=== PATIENT | female | born 1985 | race African-American/Black ===

== ENCOUNTER 2020-11-22 11:49 | Outpatient (CLI) | payer OTHER, SELFPAY ==
[2020-11-22 12:37] LABS: Basophils Percent Auto 0.8 % (0.2-1.2); Eosinophils Absolute Auto 0.2 K/mm3 (0-0.3); Eosinophils Percent Auto 3.6 % (0-4.4); Hematocrit 35.8 % (37.0-47.0); Hemoglobin 11.1 g/dL (12.0-15.0); Immature Granulocyte Absolute 0.01 K/mm3 (0.00-0.031); Immature Granulocyte Percent A 0.2 % (0-0.5); Mean Corpuscular Hemoglobin 25.2 pg (26-34); Mean Corpuscular Volume 81.2 fl (80-100); Mean Platelet Volume 9.7 fl (7.4-10.4); Monocytes Absolute Auto 0.3 K/mm3 (0.1-0.6); Neutrophils Absolute Auto 2.2 K/mm3 (1.3-6.7); Neutrophils Percent Auto 42.4 % (45.5-73.1); Platelet Count Result 297 k/mm3 (150-375); Red Blood Count 4.41 M/mm3 (4.2-5.4); Red Cell Distribution Width 15.9 % (11.5-14.5); White Blood Count 5.2 K/mm3 (4.5-10.0)
[2020-11-22 12:48] LABS: Alanine Aminotransferase 16 U/L (4-35); Albumin Level 3.9 g/dL (3.5-5.1); Alkaline Phosphatase 64 U/L (38-126); Anion Gap 4 mmol/L (8-16); Aspartate Amino Transferase 20 U/L (14-36); Bilirubin,Total 0.3 mg/dL (0.2-1.3); Blood Urea Nitrogen 15 mg/dL (7-17); Calcium 8.8 mg/dL (8.4-10.2); Carbon Dioxide 28 mmol/L (22-30); Chloride 106 mmol/L (98-107); Cholesterol 177 mg/dL (0-200); Estimated Glomerular Filt Rate > 60; Glucose 87 mg/dL (65-105); HDL Direct 32 mg/dL; Magnesium 1.7 mg/dL (1.6-2.3); Sodium 138 mmol/L (137-145); Triglycerides 77 mg/dL (<150)
[2020-11-22 12:59] LABS: LDL Cholesterol Direct 113 mg/dL
== END 2020-11-22 11:50 | disposition home or self-care (01) ==
PROVIDERS: PCP Physician Assistant; Visit Provider Internal Medicine Cardiovascular Disease
DX: I50.9 Heart failure, unspecified (principal)
CPT/HCPCS: 36415; 80053; 80061; 83735; 84443; 85025

== ENCOUNTER 2021-12-01 13:09 | Outpatient (CLI) | payer OTHER, SELFPAY ==
--- NOTE | 2021-12-01 13:20 | ECHO_ITS ---
Patient Info Name: Sandra Maurice Age: 36 years : 1985 Gender: Female Ht: 64 in Wt: 362 lbs BSA: 2.84 m2 HR: 82 bpm BP: 160 / 109 mmHg Technical Quality: Poor Exam Date: 12/01/2021 1:50 PM Exam Location: [facility] Patient Status: Outpatient Admit Date: 12/01/2021 Staff Ordering Physician: Phillip Rosas DO Scallop Binder: Alexandria Quiñones RDCS Attending Provider: Phillip Rosas DO Referring Physician: Ralph GLOVER; Exam Type: CA echo doppler color flow Study Info Indications R06.00 - Dyspnea, unspecified Complete two-dimensional, color flow and Doppler transthoracic echocardiogram is performed. Reason for Poor Study: patient body habitus Summary 1. Complete two-dimensional, color flow and Doppler transthoracic echocardiogram is performed. 2. Technically suboptimal study due to poor sonographic images. Patient refused definity contrast. 3. Left ventricular chamber dimension is normal. 4. Left ventricular systolic function is normal, estimated at 60-65%. 5. The left ventricular diastolic function is normal. 6. E/e' 8 is minimally elevated. 7. Global longitudinal strain is abnormal at -13.9%. 8. No pulmonary hypertension, estimated pulmonary arterial systolic pressure is 33 mmHg. Left Ventricle Technically suboptimal study due to poor sonographic images. Patient refused definity contrast. E/e' 8 is minimally elevated. Global longitudinal strain is abnormal at -13.9%. Left ventricular chamber dimension is normal. Left ventricular systolic function is normal, estimated at 60-65%. The left ventricular diastolic function is normal. Right Ventricle Right ventricular chamber dimension is normal. Right ventricular systolic function is normal. Left Atria Left atrial chamber dimension is normal. Right Atria Right atrial chamber dimension is normal. Aortic Valve The aortic valve is probable trileaflet. There is no aortic valve stenosis. There is no aortic valve regurgitation. Pulmonic Valve There is no pulmonic regurgitation. Mitral Valve There is no mitral valve stenosis. There is no mitral valve regurgitation. Tricuspid Valve There is no tricuspid valve regurgitation. No pulmonary hypertension, estimated pulmonary arterial systolic pressure is 33 mmHg. Pericardium/Pleural There is no pericardial effusion. Inferior Vena Cava Normal inferior vena cava with >50% collapse upon inspiration consistent with normal right atrial pressure, 5 mmHg. Aorta The aortic root size at the sinus of Valsalva is normal. Left Ventricular Outflow Tract Name Value Normal LVOT 2D LVOT Diameter 2.0 cm LVOT Doppler LVOT Peak Gradient 6 mmHg LVOT Mean Gradient 4 mmHg LVOT VTI 21 cm LVOT VTI/AV VTI Ratio 0.9 LVOT Stroke Volume 69 ml LVOT CO 5.8 l/min LVOT CI 2.1 l/min/m2 Pulmonic Valve Name
== END 2021-12-01 13:10 | disposition home or self-care (01) ==
PROVIDERS: PCP Physician Assistant; Visit Provider Internal Medicine Cardiovascular Disease
DX: R06.00 Dyspnea, unspecified (principal)
CPT/HCPCS: 93306

== ENCOUNTER 2022-07-07 15:10 | Outpatient (CLI) | payer OTHER, SELFPAY ==
--- NOTE | ~2022-07-07 | US_ITS ---
EXAMINATION: US thyroid DATE: 07/07/2022 16:20 INDICATION: Nontoxic goiter. TECHNIQUE: Multiple ultrasound images of the thyroid were obtained. COMPARISON: None. FINDINGS: The right thyroid lobe measures 8.9 x 5.3 x 3.8 cm. The left thyroid lobe measures 7.1 x 3.3 x 4.2 c m. The thyroid is filled with ill-defined nodules of similar ultrasound appearance without normal in tervening parenchyma. IMPRESSION: 1. Multinodular goiter. Biopsy is likely not needed. Reviewed, dictated and finalized at location B.
== END 2022-07-07 15:11 | disposition home or self-care (01) ==
PROVIDERS: PCP Physician Assistant; Visit Provider Physician Assistant
DX: E04.2 Nontoxic multinodular goiter (principal)
CPT/HCPCS: 76536

== ENCOUNTER 2023-04-19 15:00 | Outpatient (CLI) | payer OTHER, SELFPAY ==
[2023-04-19 18:19] LABS: Free T4 Free Thyroxine 1.47 ng/mL (0.78-2.19)
[2023-04-25 07:14] LABS: Triiodothyronine T3 Free 3.2 pg/mL (2.3-4.2)
== END 2023-04-19 15:01 | disposition home or self-care (01) ==
LOC: ANHWCLAB 15:01
PROVIDERS: PCP Physician Assistant; Visit Provider Internal Medicine Endocrinology, Diabetes & Metabolism
DX: E04.9 Nontoxic goiter, unspecified (principal)
CPT/HCPCS: 36415; 84439; 84443; 84481

== ENCOUNTER 2023-05-21 11:03 | Outpatient (CLI) | payer OTHER, SELFPAY ==
--- NOTE | ~2023-05-21 | US_ITS ---
EXAMINATION: 1. US FNA w image guidance 2. US FNA additional DATE: 05/21/2023 13:28 INDICATION: Multinodular goiter. TECHNIQUE: The procedure and its benefits and risks were discussed with the patient. Risks specifically discusse d included bleeding. The patient verbalized understanding of the risks and agreed to proceed. The nec k was prepped and draped in the usual sterile manner. 1% lidocaine was used for local anesthesia. 5 passes were made with a 25G needle into the lesion in right thyroid lobe under ultrasound guidance. 5 passes were made with a 25-gauge needle into the lesion in left thyroid lobe under ultrasound gretchen nce. There were no immediate complications. FINDINGS: Grayscale ultrasound images demonstrate needles advanced into a 4.8 cm nodule in right thyroid lobe f or biopsy. Grayscale ultrasound images demonstrate needles advanced into a 5.3 cm nodule in left thyr oid lobe for biopsy. IMPRESSION: 1. Ultrasound-guided fine needle aspiration of a right thyroid nodule. 2. Ultrasound-guided fine-needle aspiration of a left thyroid nodule. Reviewed, dictated and finalized at location A. IMPRESSION: 1. Ultrasound-guided fine needle aspiration of a right thyroid nodule. 2. Ultrasound-guided fine-needle aspiration of a left thyroid nodule.
--- NOTE | ~2023-05-21 | US_ITS ---
EXAMINATION: US thyroid DATE: 05/21/2023 12:11 INDICATION: Nontoxic goiter, unspecified. TECHNIQUE: Multiple ultrasound images of the thyroid were obtained. COMPARISON: Ultrasound 07/07/2022 FINDINGS: The right thyroid lobe measures 9.9 x 4.8 x 6.6 cm. The left thyroid lobe measures 10.5 x 5.1 x 4.1 cm. The thyroid is filled with ill-defined nodules of similar ultrasound appearance without normal i ntervening parenchyma. The largest right thyroid nodule measures 4.8 cm. The largest left thyroid nod ule measures 5.3 cm. IMPRESSION: 1. Multinodular goiter. Reviewed, dictated and finalized at location A. IMPRESSION: 1. Multinodular goiter.
== END 2023-05-21 11:04 | disposition home or self-care (01) ==
PROVIDERS: PCP Physician Assistant; Visit Provider Internal Medicine Endocrinology, Diabetes & Metabolism
DX: E04.9 Nontoxic goiter, unspecified (principal)
CPT/HCPCS: 10005; 10006; 76536; 88173; 88305; 88342

== ENCOUNTER 2024-01-09 10:19 | Emergency (ER) | payer OTHER, SELFPAY ==
[2024-01-09] VITALS (17 sets, daily range): BP systolic 131–155; BP diastolic 79–93; PULSE 73–101; RESP 13–29; TEMP 36.9; O2SAT 98–100
--- NOTE | ~2024-01-09 | XR_ITS ---
EXAMINATION: XR chest 1V portable DATE: 01/09/2024 10:55 INDICATION: Chest pain. Dyspnea. TECHNIQUE: A single frontal view of the chest was obtained. COMPARISON: None. FINDINGS: There is no pneumonia, pleural effusion, or pneumothorax. Cardiomegaly is noted. IMPRESSION: 1. Cardiomegaly. Reviewed, dictated and finalized at location A. IMPRESSION: 1. Cardiomegaly.
--- NOTE | ~2024-01-09 | CT_ITS ---
EXAMINATION: CTA chest PE abdomen pel DATE: 01/09/2024 12:22 INDICATION: Chest pain, shortness of breath and elevated d-dimer. TECHNIQUE: Computed tomography (CT) pulmonary angiogram of the chest was performed with 100 mL Omnipa que-350 intravenous contrast. Additional 3D reconstructions utilizing coronal maximum intensity proje ction (MIP) were performed. CT of the abdomen and pelvis was performed with intravenous contrast util izing the same contrast bolus following a short delay. Automated exposure control and iterative recon struction technique were employed. The dose-length product was 2637.69 mGy-cm. COMPARISON: CT abdomen and pelvis dated 03/31/2019 FINDINGS: Chest: No pulmonary embolism. Sensitivity decreased in some of the smaller subsegmental pulmonary arteries d ue to suboptimal timing of the contrast bolus. No pneumonia, pulmonary edema, pleural effusion or pne umothorax. Normal heart size. No pericardial effusion. Thoracic aorta is normal in caliber with no di ssection. No pathologically enlarged thoracic lymphadenopathy. Moderate disc height loss and scleroti c Modic type III degenerative endplate changes at C5-C6. Mild thoracic spondylosis. Abdomen/pelvis: Liver, gallbladder, spleen, pancreas, bilateral adrenal glands and kidneys are normal. Bowels includi ng the appendix are normal. Fibroid uterus with 10 cm fibroid at the right anterior lower uterine seg ment and additional 3.5 cm fibroid at the left posterior fundus. Bladder and bilateral adnexa are unr emarkable. No free intraperitoneal gas or fluid. No pathologically enlarged abdominal or pelvic lymph adenopathy. Mild bilateral hip osteoarthritis. IMPRESSION: 1. No pulmonary embolism or other acute cardiopulmonary disease. 2. Fibroid uterus. No acute intra-abdominal/pelvic process. Reviewed, dictated and finalized at location B.
--- NOTE | 2024-01-09 10:24 | ED.CHESTPAIN ---
HPI - Chest Pain General Chief Complaint: Chest Pain Stated Complaint: chest pain, flank pain Time Seen by Provider: 01/09/24 10:20 Source: patient Mode of arrival: ambulatory Limitations: no limitations History of Present Illness HPI narrative: Sandra is a 38-year-old female patient presenting to the clinic today with complaints of left-sided chest pain, feeling as though she is going to pass out, left-sided flank pain x4 days. She reports she was initially taking ibuprofen for her symptoms and that was helping with the pain however is no longer helping. Rates the pain currently an 8/10. Feels short of breath at times but not currently. She denies any URI symptoms. Does have history of asthma, prediabetes, hypertension, and hyperlipidemia. She is a tobacco user but denies using alcohol or recreational drugs. Related Data Home Medications Medication Instructions Recorded Confirmed ferrous sulfate 324 mg (65 mg 324 mg PO DAILY 10/21/20 04/19/23 iron) tablet,delayed release bupropion HCl 150 mg 24 hr tablet, 150 mg PO QAM 11/10/21 04/19/23 extended release lisinopril 10 1 tablet PO DAILY 11/10/21 04/19/23 mg-hydrochlorothiazide 12.5 mg tablet Allergies Allergy/AdvReac Type Severity Reaction Status Date / Time tramadol Allergy Unknown BLISTERS Verified 01/09/24 10:27 Review of Systems Review of Systems: Pertinent positives per HPI. Patient denies any fever, chills, rash, headache, visual changes, dizziness, cough, runny nose, sore throat, palpitations, nausea, vomiting, diarrhea, constipation, abdominal pain, or any urinary issues. [facility] Past Medical History Medical History Anemia Asthma GERD (gastroesophageal reflux disease) HTN (hypertension) Family History Family History Mother Diabetes mellitus Lupus erythematosus Chronic kidney disease Heart disease Social History Social History Smoking packs per day: 0.2 Smoking cigarettes per day: 4.0 Smoking status: Current some day smoker Alcohol intake: never Substance use: never Substance use type: does not use Lack of Transportation: No Lack of Food: Never True Current Housing: I Have Housing Concerned About Future Housing: No Difficulty Paying Gas/Electric Bills: No Difficulty Paying for Meds: No Currently Unemployed: No Education: Master's Degree or Higher Difficulty w/ Childcare or Family Care: No Comments At the time of my signature, I reviewed and agree with the nursing past medical, surgical, social, and family history. There is no relevant family history pertinent to the patient complaint. Exam Narrative: General: Well-developed, morbidly obese, in no apparent distress Head: Normocephalic, atraumatic. Chest wall: Even rise and fall of the chest wall with respirations, no bruising or swelling noted, tenderness to palpation over the left chest wall Cardio: Regular rate and rhythm, s1 and s2 normal, no murmur appreciated. Resp: Clear to auscultation bilaterally, no rhonchi, rales, wheezing or rubs. Abdomen: Soft, pliable, bowel sounds present in all quadrants, non-tender to palpation, no organomegly, no CVAT tenderness. Extremities: No deformity, no edema, no cyanosis, capillary refill less than 2 seconds, peripheral pulses palpable and strong. Integumentary: [place], warm, and dry, intact without lesion, no rashes. Course Course Emergency Course: Portions of this record may have been created with voice recognition software. Vital Signs Vital signs: Vital Signs Temperature 36.9 C 01/09/24 10:23 Pulse Rate 97 01/09/24 10:23 Respiratory Rate 16 01/09/24 10:23 Blood Pressure 155/93 H 01/09/24 10:23 Pulse Oximetry 100 01/09/24 10:23 Oxygen Delivery Room Air 01/09/24 10:23 Temperature 36.9
--- NOTE | 2024-01-09 10:27 | ECG_ITS ---
Measurements Intervals [place] Rate: 97 P: 49 OH: 186 QRS: 51 QRSD: 105 T: -48 QT: 347 Avg RR 615 QTc: 402 QTcB 442 QTcF 408 Interpretive Statements SINUS RHYTHM INCOMPLETE RIGHT BUNDLE BRANCH BLOCK [90+ ms QRS DURATION, TERMINAL R IN V1/V2, 40+ ms S IN I/aVL/V4/V5/V6] ST DEVIATION AND MODERATE T-WAVE ABNORMALITY, CONSIDER LATERAL ISCHEMIA [-0.1+ mV T-WAVE IN I/aVL/V5/V6] ST DEVIATION AND MODERATE T-WAVE ABNORMALITY, CONSIDER INFERIOR ISCHEMIA [-0.1+ mV T-WAVE IN I/aVL/V5/V6] ABNORMAL ECG SEE SCANNED COPY FOR SIGNATURE MTDD
[2024-01-09 10:41] LABS: Basophils Absolute Auto 0.1 K/mm3 (0.0-0.1); Basophils Percent Auto 1.3 % (0.2-1.2); Eosinophils Absolute Auto 0.2 K/mm3 (0-0.3); Eosinophils Percent Auto 2.5 % (0-4.4); Hematocrit 35.8 % (37.0-47.0); Hemoglobin 11.5 g/dL (12.0-15.0); Immature Granulocyte Absolute 0.05 K/mm3 (0.00-0.031); Immature Granulocyte Percent A 0.7 % (0-0.5); Lymphocytes Absolute Auto 2.66 K/mm3 (0.9-3.2); Lymphocytes Percent Auto 34.9 % (18.3-44.2); Mean Corpuscular HGB Conc 32.1 g/dl (32-36); Mean Corpuscular Hemoglobin 27.8 pg (26-34); Mean Corpuscular Volume 86.5 fl (80-100); Mean Platelet Volume 9.2 fl (7.4-10.4); Monocytes Absolute Auto 0.5 K/mm3 (0.1-0.6); Monocytes Percent Auto 6.2 % (2.6-8.5); Neutrophils Absolute Auto 4.2 K/mm3 (1.3-6.7); Neutrophils Percent Auto 54.4 % (45.5-73.1); Platelet Count Result 353 k/mm3 (150-375); Red Blood Count 4.14 M/mm3 (4.2-5.4); Red Cell Distribution Width 14.5 % (11.5-14.5); White Blood Count 7.6 K/mm3 (4.5-10.0)
[2024-01-09 10:51] LABS: Alanine Aminotransferase 17 U/L (6-35); Albumin Level 4.7 g/dL (3.5-5.1); Alkaline Phosphatase 59 U/L (38-126); Anion Gap 11 mmol/L (4-12); Aspartate Amino Transferase 24 U/L (14-36); Bilirubin,Total 0.5 mg/dL (0.2-1.3); Blood Urea Nitrogen 20 mg/dL (7-17); Calcium 9.5 mg/dL (8.4-10.2); Carbon Dioxide 21 mmol/L (22-30); Chloride 105 mmol/L (98-107); Estimated CRCL calculation 78 ml/min; Estimated Glomerular Filt Rate 52; Glucose 86 mg/dL (65-110); Lipase 192 U/L (23-300); Potassium 4.3 mmol/L (3.4-5.0); Sodium 137 mmol/L (137-145)
[2024-01-09 10:53] LABS: Partial Thromboplastin Time 29.6 Seconds (22.3-36.8)
[2024-01-09 11:02] LABS: Troponin I < 0.012 ng/mL (0.000-0.034)
[2024-01-09 11:30] LABS: Appearance Urine Clear (Clear); Bacteria Urine None Seen /hpf; Bilirubin Urine Negative (Negative); Blood Urine Negative (Negative); Color Urine Yellow (Yellow); Glucose Urine UA Negative (Negative); Ketones Urine Negative (Negative); Leukocyte Esterase Ur Trace LEU/UL (Negative); Nitrate Urine Negative (Negative); Non Pathogenic Casts 0-2; Protein Urine Negative (Negative); Specific Grav Ur 1.011 (1.001-1.035); Squamous Epithelial Cell Urine Occasional /hpf (Few); Urobilinogen Urine 0.2 mg/dL (<2.0); WBC Urine 0-5 /hpf (0-3)
[2024-01-09 11:40] LABS: D Dimer 0.58 ug/mL (<0.48)
[2024-01-09 11:43] LABS: NT Pro B Type Natriuretic Pept < 20 pg/mL (19.9-100)
[2024-01-09 11:43] LABS: Add Urine Microscopic? YES
--- NOTE | 2024-01-09 13:22 | ECG_ITS ---
Measurements Intervals [place] Rate: 75 P: 43 NM: 197 QRS: 24 QRSD: 101 T: 21 QT: 368 Avg RR 797 QTc: 397 QTcB 412 QTcF 396 Interpretive Statements SINUS RHYTHM POSSIBLE RIGHT VENTRICULAR CONDUCTION DELAY [RSR (QR) IN V1/V2] NONSPECIFIC T-WAVE ABNORMALITY BORDERLINE ECG SEE SCANNED COPY FOR SIGNATURE MTDD
[2024-01-09 13:52] LABS: Troponin I < 0.012 ng/mL (0.000-0.034)
== END 2024-01-09 14:20 | disposition home or self-care (01) ==
PROVIDERS: Emergency Medicine; Emergency Provider Nurse Practitioner Family; PCP Physician Assistant
DX: D64.9 Anemia, unspecified (principal); R07.89 Other chest pain; R10.9 Unspecified abdominal pain; J45.909 Unspecified asthma, uncomplicated; R73.03 Prediabetes; I10 Essential (primary) hypertension; E78.5 Hyperlipidemia, unspecified; K21.9 Gastro-esophageal reflux disease without esophagitis; Z72.0 Tobacco use
CPT/HCPCS: 36415; 71045; 71275; 74177; 80053; 81001; 81025; 83690; 83880; 84484; 85025; 85380; 85610; 85730; 93005; 99284; Q9967

== ENCOUNTER 2024-04-18 15:43 | Outpatient (CLI) | payer OTHER, SELFPAY ==
[2024-04-18 16:25] LABS: Basophils Absolute Auto 0.1 K/mm3 (0.0-0.1); Basophils Percent Auto 1.4 % (0.2-1.2); Eosinophils Absolute Auto 0.3 K/mm3 (0-0.3); Eosinophils Percent Auto 5.4 % (0-4.4); Hematocrit 38.2 % (37.0-47.0); Hemoglobin 12.1 g/dL (12.0-15.0); Immature Granulocyte Absolute 0.04 K/mm3 (0.00-0.031); Immature Granulocyte Percent A 0.7 % (0-0.5); Lymphocytes Absolute Auto 2.16 K/mm3 (0.9-3.2); Lymphocytes Percent Auto 38.8 % (18.3-44.2); Mean Corpuscular HGB Conc 31.7 g/dl (32-36); Mean Corpuscular Hemoglobin 26.9 pg (26-34); Mean Corpuscular Volume 84.9 fl (80-100); Mean Platelet Volume 9.3 fl (7.4-10.4); Monocytes Absolute Auto 0.3 K/mm3 (0.1-0.6); Monocytes Percent Auto 6.1 % (2.6-8.5); Neutrophils Absolute Auto 2.7 K/mm3 (1.3-6.7); Neutrophils Percent Auto 47.6 % (45.5-73.1); Platelet Count Result 326 k/mm3 (150-375); Red Cell Distribution Width 12.9 % (11.5-14.5); White Blood Count 5.6 K/mm3 (4.5-10.0)
[2024-04-18 16:33] LABS: Hemoglobin A1C 5.6 % (<5.7)
[2024-04-18 16:34] LABS: Albumin Level 4.3 g/dL (3.5-5.1); Anion Gap 10 mmol/L (4-12); Blood Urea Nitrogen 23 mg/dL (7-17); Calcium 9.1 mg/dL (8.4-10.2); Carbon Dioxide 27 mmol/L (22-30); Chloride 101 mmol/L (98-107); Estimated Glomerular Filt Rate 44; Glucose 91 mg/dL (65-110); Phosphorus 3.7 mg/dL (2.5-4.5); Potassium 4.2 mmol/L (3.4-5.0); Sodium 138 mmol/L (137-145)
[2024-04-18 16:50] LABS: Appearance Urine Clear (Clear); Bacteria Urine None Seen /hpf; Bilirubin Urine Negative (Negative); Blood Urine 2+ (Negative); Color Urine Yellow (Yellow); Glucose Urine UA 2+ mg/dL (Negative); Ketones Urine Negative (Negative); Leukocyte Esterase Ur 1+ LEU/UL (Negative); Nitrate Urine Negative (Negative); Non Pathogenic Casts 0-2; Protein Urine Negative (Negative); RBC Urine 21-50 /hpf (0-2); Specific Grav Ur 1.021 (1.001-1.035); Squamous Epithelial Cell Urine Occasional /hpf (Few); Urobilinogen Urine 0.2 mg/dL (<2.0)
[2024-04-18 16:53] LABS: Creatinine Urine 162.2 mg/dL; Total Protein Urine Random 6 mg/dL; Ur Ttl Prot Creatinine Ratio 0.04 mg/mg (0-0.20)
[2024-04-18 17:12] LABS: Vitamin D 25 Hydroxy 37.9 ng/mL
[2024-04-18 17:20] LABS: Add Urine Microscopic? YES
== END 2024-04-18 15:44 | disposition home or self-care (01) ==
LOC: ANHLAB 15:45
PROVIDERS: PCP Physician Assistant; Visit Provider Hospitalist
DX: I12.9 Hypertensive chronic kidney disease with stage 1 through stage 4 chronic kidney disease, or unspecified chronic kidney disease (principal); N18.31 Chronic kidney disease, stage 3a
CPT/HCPCS: 36415; 80069; 81001; 82306; 82570; 83036; 84156; 85025